=== PATIENT | female | born 1975 | race Hispanic/Latino ===

== ENCOUNTER 2024-05-07 19:05 | Emergency (ER) | payer SELFPAY ==
--- OUTSIDE RECORDS SUMMARY | 2024-05-07 19:08 | XMS REPORT | Continuity of Care Document ---
Author Name Unknown Address [address] [facility] [place] [address] 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 Name Role Phone PIÑA DEBBIEMARKO AKBAR Primary Care Physician Unav ailable [facility]_WalkInSchedul Attending Clinician Unavail able Beatriz Mcgarry MD Attending Clinician [phone] BEATRIZ MCGARRY Attending Clinician Unavailable NEIL SIMENTAL Attending Clinician Unavailable Horace Montalvo MD Attending Clinician [phone] Neil Antoine Attending Clinician [phone] Doctor Unassigned, [place] Attending Clinician U navailable [facility]_WalkInSchedul Admitting Clinician Unavail able NEIL SIMENTAL Admitting Clinician Unavailable Payers Payer Name Policy Type Policy Number Effective Date Expirati on Date Source Problems Condition Name Condition Details Condition Category Status Onset Date Resolution Date Last Treatment Date Treating Clinician Comments Source Gastroesop hageal reflux disease without esophagiti s Gastroesop hageal Reflux Disease without Esophagiti s Problem Active 08-02 00:00: 00 [facility] Gastritis Gastritis Problem Active 08-02 00:00: 00 [facility] Hiatal hernia Hiatal Hernia Problem Active 08-02 00:00: 00 [facility] Impaired fasting glycemia Impaired Fasting Glycemia Problem Active 08-02 00:00: 00 [facility] History of gallstones History of Gallstones Problem Active 08-02 00:00: 00 [facility] Encounter for screening mammogram for breast cancer Encounter for screening mammogram for breast cancer Disease Active 2015-07 00:00: 00 [facility] Single episode of elevated blood pressure Single episode of elevated blood pressure Disease Active 2015-07 00:00: 00 [facility] General counseling and advice for contracept fei management General counseling and advice for contracept fei management Disease Active 2013-07 00:00: 00 Overview: Formattin g of this note might be different from the original. ICD10 Diagnosis Term Cardiac Cath Rn Utility [facility] Irregular menstrual cycle Irregular menstrual cycle Disease Active 2013-07 00:00: 00 [facility] Allergies, Adverse Reactions, Alerts Allergy Name Allergy Type Status Severity Reaction(s) Onset Date Inactive Date Treating Clinician Comments Source NO KNOWN ALLERGIE S Drug Class Active [facility] Social History Social Habit Start Date Stop Date Quantity Comments Source Alcohol intake 2022-08-26 00:00:00 2022-08-26 00:00:00 0 /d [facility] Exposure to SARS-CoV-2 (event) 2022-08-04 00:00:00 2022-08-14 23:07:00 Not sure [facility] Tobacco use and exposure 2012-12-02 00:00:00 2012-12-02 00:00:00 Smokeless tobacco non-user [facility] Sex Ass[birth year] At 1975 00:00:00 1975 00:00:00 [facility] Smoking Status Start Date Stop Date Source Never smoked tobacco [facility] Medications Ordered Medication Name Filled Medication Name Start Date Stop Date Current Medication? Ordering Clinician Indication Dosage Frequency Signature (SIG) Comments Components Source sucralfate 100 mg/mL suspension 08-27 00:00: 00 08-27 00:00 :00 No [id number] 1000mg Take 10 mL by mouth before meals and at bedtime. [facility] esomeprazol e magnesium (NEXIUM ORAL) 08-26 15:53: 19 Yes Take by mouth. [facility] sucralfate 100 mg/mL suspension 08-26 00:00: 00 08-27 00:00 :00 No [id number] 1000mg Take 10 mL by mouth before meals and at bedtime for 30 days. [facility] iopamidol (ISOVUE 370-500 mL) injection 75 mL 08-15 06:45: 00 08-15 06:45 :00 No [id number] 75mL 75 mL, Intravenou s, ONCE, 1 dose, On Mary 08/15/22 at 0045, Routine [facility] ondansetron (ZOFRAN (PF)) injection 4 mg 08-15 05:30: 00 08-15 05:21 :00 No 4mg 4 mg, Slow IV Push, ONCE, 1 dose, On Fri08/14/22 at 2330, MARNI [facility] morpHINE (4 mg/mL) injection 4 mg 08-15 05:30: 00 08-15 05:22 :00 No 4mg 4 mg, Slow IV Push, ONCE, 1 dose, On Fri08/14/22 at 2330, STAT [facility] dicyclomine 20 mg tablet 08-15 00:00: 00 Yes [id number] 20mg Take 1 tablet by mouth 4 (four) times daily as needed for Abdominal pain. [facility] ondansetron 4 mg disintegrat ing tablet 08-15 00:00: 00 Yes [id number] 4mg Take 1 tablet by mouth every 8 (eight) hours as needed for Nausea and Vomiting (N/V). [facility] esomeprazol e magnesium (NEXIUM ORAL) 2018-07 20:15: 46 Yes Take by mouth. [facility] pantoprazol e 40 mg tablet,andrea yed release Take 1 tablet every day by oral route. pantoprazol e 40 mg tablet,andrea yed release Take 1 tablet every day by oral route. No 1 Q1D pantoprazo le 40 mg tablet,del ayed release Take 1 tablet every day by oral route. [facility] Tylenol Tylenol No Tylenol [facility] Vital Signs Vital Name Observation Time Observation Value Comments S ource Systolic blood pressure 2022-08-26 20:10:00 133 mm[Hg] [facility] Diastolic blood pressure 2022-08-26 20:10:00 84 mm[Hg] [facility] Heart rate 2022-08-26 20:10:00 107 /min [facility] Body temperature 2022-08-26 20:10:00 36.56 Amarilis [facility] Respiratory rate 2022-08-26 20:10:00 18 /min [facility] Body height 2022-08-26 20:10:00 157.5 cm [facility] Body weight 2022-08-26 20:10:00 60.601 kg [facility] BMI 2022-08-26 20:10:00 24.44 kg/m2 [facility] Systolic blood pressure 2022-08-15 08:00:00 124 mm[Hg] [facility] Diastolic blood pressure 2022-08-15 08:00:00 90 mm[Hg] [facility] Heart rate 2022-08-15 08:00:00 66 /min [facility] Respiratory rate 2022-08-15 08:00:00 20 /min [facility] Oxygen saturation in Arterial blood by Pulse oximetry 2022-08-15 08:00:00 99 /min [facility] Body temperature 2022-08-15 05:11:00 35.61 Amarilis [facility] Body height 2022-08-15 05:11:00 160 cm [facility] Body weight 2022-08-15 05:11:00 62.052 kg [facility] BMI 2022-08-15 05:11:00 24.23 kg/m2 [facility] BP Diastolic 2022-08-02 00:00:00 89 mm[Hg] [facility] Height 2022-08-02 00:00:00 63 [in_i] [facility] BMI (Body Mass Index) 2022-08-02 00:00:00 23.6 kg/m2 [facility] BP Systolic 2022-08-02 00:00:00 131 mm[Hg] [facility] Body Weight 2022-08-02 00:00:00 2128 [oz_av] [facility] Procedures Procedure Date / Time Performed Performing Clinicia n Source POCT TEST 2022-08-15 05:23:00 Horace Montalvo [facility] URINALYSIS 2022-08-15 05:19:00 Horace Montalvo [facility] LIPASE 2022-08-15 05:19:00 Horace Montalvo [facility] COMP. METABOLIC PANEL (14355) 2022-08-15 05:19:00 Horace Montalvo [facility] CBC WITH DIFF 2022-08-15 05:19:00 Horace Montalvo [facility] NOTICE OF PRIVACY PRACTICES 2022-08-15 05:03:10 Doctor Unassigned, [place] [facility] CONSENT/REFUSAL FOR DIAGNOSIS AND TREATMENT 2022-08-15 05:02:20 Doctor Unassigned, [place] [facility] Csf Shunt Reprogram [facility] edical Plan of Care Planned Activity Planned Date Details Comments Source Diagnostic Test Pending 2022-08-02 00:00:00 CBC w/ auto diff [code = CBC w/ auto diff] [facility] Diagnostic Test Pending 2022-08-02 00:00:00 CMP, serum or plasma [code = CMP, serum or plasma] [facility] Diagnostic Test Pending 2022-08-02 00:00:00 HbA1 c (hemoglobin A1c), blood [code = HbA1c (hemoglobin A1c), blood] [facility] Medical Encounters Start Date/Time End Date/Time Encounter Type Admission Type Attending [facility] Care Facility Care Department Encounter ID Source 2023-08-12 00:00:00 2023-08-12 00:00:00 Outpatient [facility]Walk InSchedul [facility] [id number] [facility] 2022-08-29 00:00:00 2022-08-29 00:00:00 Beatriz Tobias [facility] [id number] [id number] [facility] 2022-08-26 14:30:00 2022-08-26 16:19:29 Outpatient R BEATRIZ MCGARRY [facility] [id number] [facility] 2022-08-26 14:30:00 2022-08-26 16:19:29 [facility] 1..840.114 350.1.13.10 [id number] [id number] [facility] 2022-08-14 23:06:00 2022-08-15 02:07:00 Emergency X NEIL SIMENTAL [facility] ERT [id number] [facility] 2022-08-14 23:06:00 2022-08-15 02:07:00 Emergency Horace Montalvo S Neil Simental S [facility] 1..840.114 [id number] [id number] [id number] [facility] 2022-08-14 00:00:00 2022-08-14 00:00:00 Orders Only Doctor Unassigned, [place] [facility] 1..840.114 [id number] [id number] [id number] [facility] 2022-08-02 00:00:00 2022-08-02 00:00:00 [id number] [facility] 2022-08-02 00:00:00 2022-08-02 00:00:00 NICOLE Fisher: [address] [address] , Ph. [facility] - GC_CPC_Need [facility] Office [id number] [facility] Results Test Description Test Time Test Comments Results Result Co mments Source [facility] Met[facility] [id number] 06:25:06* Test Item Value Reference Range Interpretation Comme nts NA (test code = 5274805511) 139 mmol/L 135-145 K (test code = 3588263931) 4.0 mmol/L 3.5-5.0 CL (test code = 2673666904) 102 mmol/L 98-108 CO2 TOTAL (test code = 0607746991) 30 mmol/L 23-31 AGAP (test code = 5417292190) 7 2-16 BUN (test code = 4014688998) 21 mg/dL 7-23 GLUCOSE (test code = 7862556117) 130 mg/dL 70-110 H CREATININE (test code = 0129791174) 0.86 mg/dL 0.50-1.04 TOTAL BILI (test code = 5988262179) 0.4 mg/dL 0.1-1.1 CALCIUM (test code = 3583608577) 9.2 mg/dL 8.6-10.6 T PROTEIN (test code = 4019781263) 7.6 g/dL 6.3-8.2 ALBUMIN (test code = 6798883804) 4.5 g/dL 3.5-5.0 ALK PHOS (test code = 4225866735) 86 U/L 34-122 ALTv (test code = 1742-6) 105 U/L 5-35 H AST(SGOT) (test code = 3669694470) 147 U/L 13-40 H eGFR (test code = 4377882100) 71.0 mL/min/1.73m2 JOAN (test code = JOAN) Association of Glomerular Filtration Rate (GFR) and Staging of Kidney Disease* + --+ --+ ------+| GFR (mL/min/1.73 m2) ?| With Kidney Damage ?| ?Without Kidney Damage+ --------+ --------+ +| ?>90 ?| ?Stage one ?| ? Normal ?+ ---+ ---+ -------+| ?60-89 ?| ?Stage two ?| ? Decreased GFR ? + --+ --+ ------+| ?30-59 ?| ?Stage three ?| ? Stage three ? + --+ --+ ------+| ?15-29 ?| ?Stage four ? | ? Stage four ?+ ---+ ---+ -------+| ?<15 (or dialysis) ? ?| ?Stage five ? | ? Stage five ?+ ---+ ---+ -------+ *Each stage assumes the associated GFR level has been in effect for at least three months. ?Stages 1 to 5, with or without kidney disease, indicate chronic kidney disease. Notes: Determination of stages one and two (with eGFR >59mL/min/1.73 m2) requires estimation of kidney damage for at least three months as defined by structural or functional abnormalities of the kidney, manifested by either:Pathological abnormalities or Markers of kidney damage (including abnormalities in the composition of the blood or urine or abnormalities in imaging tests). Lab Interpretation (test code = 82819-5) Abnormal [facility], [id number] 06:24:26* Test Item Value Reference Range Interpretation Comme [facility] LIPASE (test code = 7665574855) 220 U/L 0-220 Lab Interpretation (test cod e = 55258-7) Normal [facility] [id number] 05:23:00* Test Item Value Reference Range Interpretation Comme nts POCT PREG (test code = 1605) Negative On board controls acceptable with C Line (test code = 3574) Positive POCT PREG LOT # (test code = 3575) [id number] POCT PREG TEST DATE ( test code = 3576) 10/12/2023 Lab Interpretation (test cod e = 05887-2) Normal [facility]"
[2024-05-07 19:42] LABS: Absolute Basophils 0.1 K/uL (0-0.5); Absolute Eosinophils 0.2 K/uL (0-0.5); Absolute Lymphocytes (CBC) 1.2 K/uL (0.7-4.9); Absolute Monocytes 0.5 K/uL (0.1-1.3); Absolute Neutrophil 5.3 K/uL (1.8-8.0); Basophils % 1.4 % (0-1.3); Eosinophils % 2.1 % (0-4.4); Hematocrit 39.2 % (36.0-45.0); Hemoglobin 13.3 g/dL (12.0-15.0); MCH 30.6 pg (27.0-35.0); MCHC 33.9 g/dL (32.0-36.0); MCV 90.1 fL (80-100); MPV 8.6 fL (7.6-11.3); Monocytes % 6.4 % (3.3-12.3); Neutrophils % 73.1 % (41.7-73.7); Nucleated Red Blood Cells % 0.1 % (0-0); Platelets 242 thou/uL (152-406); RBC Red Blood Cell Count 4.35 M/uL (3.86-4.86); Red Cell Distribution Width 13.6 % (12.1-15.2)
[2024-05-07] MEDS ORDERED: MORPHINE 4 MG/ML SYR ONE (19:43)
[2024-05-07] MEDS ORDERED: NA CHLORIDE 0.9% 1,000 ML ONE (19:43)
[2024-05-07] MEDS ORDERED: ONDANSETRON 4 MG/2 ML VIAL ONE (19:43)
[2024-05-07] MEDS ORDERED: FAMOTIDINE 20 MG/2 ML VIAL IV ONE (19:43)
[2024-05-07 19:57] LABS: Albumin 3.6 g/dL (3.4-5.0); Albumin/Globulin Ratio 0.9 (1.1-1.8); Anion Gap 9.9 mEq/L (5.0-15.0); Bilirubin Total 0.2 mg/dL (0.2-1.0); Globulin 3.8 g/dL (2.3-3.5); Potassium 3.9 mEq/L (3.5-5.1); Protein, Total 7.4 g/dL (6.4-8.2)
[2024-05-07 20:07] LABS: Specific Gravity > 1.030 (1.005-1.030)
[2024-05-07 20:08] LABS: Specific Gravity > 1.030 (1.005-1.030); Sqamous Epithelial <5 /HPF (None Seen); Urine Bacteria None Seen /HPF (<20); Urine Bilirubin NEGATIVE (Negative); Urine Blood Negative (Negative); Urine Clarity Clear (Clear); Urine Color Light-Yellow (Yellow); Urine Culture Reflex Order NOT NEEDED; Urine Glucose NEGATIVE (Negative); Urine Ketones NEGATIVE (Negative); Urine Microscopic Reflex YN ORDER UMIC; Urine Mucus Slight /HPF (None Seen); Urine Nitrite NEGATIVE (Negative); Urine Protein TRACE (Negative); Urine RBC <5 /HPF (None Seen); Urine Urobilinogen Normal (Normal); Urine WBC <5 /HPF (<5); Urine Yeast (Budding) Trace /HPF (None Seen)
--- NOTE | 2024-05-07 20:30 | RAD REPORT ---
EXAM: Right upper quadrant ultrasound. CLINICAL HISTORY: Abdominal pain COMPARISON: None FINDINGS: Multiple gallstones. Small to moderate amount of gallbladder sludge. Gallbladder wall appears mildly thickened. Biliary tree normal caliber IMPRESSION: Cholelithiasis with gallbladder sludge Mild gallbladder wall thickening may indicate cholecystitis
--- NOTE | 2024-05-07 21:23 | EDPHYS ---
Physician Documentation [facility] Name: Rickie Arriaga Age: 49 yrs Sex: Female : 1975 Arrival Date: 05/07/2024 Time: 19:05 Bed 15 Private MD: ED Physician Rehan Andrews HPI: 05/07 19:30 This 49 yrs old Female presents to ER via Ambulatory with complaints of cp Abdominal Pain. 19:30 The patient presents with abdominal pain in the epigastric area, in the upper abdomen. cp Onset: The symptoms/episode began/occurred today. The symptoms radiate to Associated signs and symptoms: Pertinent positives: nausea, Pertinent negatives: constipation, diarrhea, fever. The symptoms are described as constant, crampy. Severity of pain: in the emergency department the pain is unchanged despite home interventions. REHABILITATION PHYSICIAN: 05/08 00:08 unknown bm8 Historical: - Allergies: 05/07 19:23 No Known Allergies; tm6 - PMHx: 19:23 shunt; tm6 - PSHx: 19:23 None; tm6 - Immunization history:: Client reports receiving the 2nd dose of the Covid vaccine. - Infectious Disease History:: Denies. - Social history:: Smoking status: Patient denies any tobacco usage or history of. Patient/guardian denies using alcohol. ROS: 19:35 Constitutional: Negative for body aches, chills, fever, poor PO intake, cp 19:35 Eyes: Negative for injury, pain, redness, and discharge, cp 19:35 ENT: Negative for drainage from ear(s), ear pain, sore throat, difficulty swallowing, difficulty handling secretions, 19:35 Cardiovascular: Negative for chest pain, edema, palpitations, 19:35 Respiratory: Negative for cough, shortness of breath, wheezing, 19:35 Abdomen/GI: Positive for abdominal pain, nausea, Negative for diarrhea, constipation, active vomiting, 19:35 Back: Positive for radiated pain, 19:35 Neuro: Negative for altered mental status, dizziness, headache, numbness, weakness, 19:35 All other systems are negative, Exam: 19:40 Constitutional: The patient appears in no acute distress, alert, awake, non-toxic, well cp developed, well nourished, in obvious pain, uncomfortable, 19:40 Head/Face: Normocephalic, atraumatic. cp 19:40 Eyes: Periorbital structures: appear normal, Conjunctiva: normal, no exudate, no injection, Sclera: no appreciated abnormality, Lids and lashes: appear normal, bilaterally, 19:40 ENT: External ear(s): are unremarkable, Nose: is normal, Mouth: Lips: moist, Oral mucosa: pink and intact, moist, Posterior pharynx: Airway: no evidence of obstruction, patent, 19:40 Chest/axilla: Inspection: normal, 19:40 Cardiovascular: Rate: normal, Rhythm: regular, 19:40 Respiratory: the patient does not display signs of respiratory distress, Respirations: normal, no use of accessory muscles, no retractions, labored breathing, is not present, Breath sounds: are clear throughout, no decreased breath sounds, no stridor, no wheezing, 19:40 Abdomen/GI: Inspection: abdomen appears normal, Bowel sounds: active, all quadrants, Palpation: soft, in all quadrants, severe abdominal tenderness, in the epigastric area, rebound tenderness, is not appreciated, voluntary guarding, is elicited in the epigastric area and right upper quadrant, 19:40 Back: CVA tenderness, is absent, 19:40 Neuro: Orientation: to person, place \T\ time. Mentation: is normal, Motor: moves all fours, strength is normal, Vital Signs: 19:22 BP 152 / 98; Pulse 66; Resp 17; Temp 97.5(O); Pulse Ox 100% on R/A; MAP 112 mmHg; tm6 Weight 63.5 kg; Height 5 ft. 2 in. ; Pain 6/10; 20:24 BP 144 / 93; Pulse 55; Resp 17; Temp 97.5; Pulse Ox 100% on R/A; Pain 3/10; bm8 22:20 BP 147 / 90; Pulse 68; Resp 18; Temp 97.5; Pulse Ox 96% ; Pain 0/10; bm8 23:23 BP 139 / 92; Pulse 68; Resp 17; Temp 98.2; Pulse Ox 99% ; Pain 0/10; bm8 05/08 00:08 BP 138 / 98; Pulse 65; Resp 17; Temp 98.2; Pulse Ox 99% ; Pain 0/10; bm8 05/07 19:22 Body Mass Index 25.61 (63.50 kg, 157.48 cm) tm6 05/07 19:22 Pain Scale: Adult tm6 20:24 Pain Scale: Adult bm8 22:20 Pain Scale: Adult bm8 23:23 Pain Scale: Adult bm8 05/08 00:08 Pain Scale: Adult bm8 Matt Coma Score: 05/07 19:38 Eye Response: spontaneous(4). Motor Response: obeys commands(6). Verbal Response: bm8 oriented(5). Total: 15. 22:20 Eye Response: spontaneous(4). Motor Response: obeys commands(6). Verbal Response: bm8 oriented(5). Total: 15. 23:23 Eye Response: spontaneous(4). Motor Response: obeys commands(6). Verbal Response: bm8 oriented(5). Total: 15. 05/08 00:08 Eye Response: spontaneous(4). Motor Response: obeys commands(6). Verbal Response: bm8 oriented(5). Total: 15. MDM: 05/07 19:15 Medical Screening Exam initiated cp 20:35 Data reviewed: vital signs, nurses notes, lab test result(s), radiologic studies, cp ultrasound. 20:35 Management of patient was discussed with the following: Senior Bi Developer: DR Cantu \T\2019 who cp requests transfer to higher level of care due to patient's PMHX significant for [employer] shunt placement and need for intraoperative ICP monitoring. 05/07 19:25 Order name: CBC with Diff; Complete Time: 20:16 cp 05/07 20:16 Interpretation: Reviewed. cp 05/07 19:25 Order name: CMP; Complete Time: 20:16 cp 05/07 20:16 Interpretation: Normal except: CL 108; GLUC 126; BUN 24; GFR 68; ALT 70; GLOB 3.8; A/G cp 0.9. 05/07 19:25 Order name: Lipase; Complete Time: 20:16 cp 05/07 19:25 Order name: Test, Urine; Complete Time: 20:16 cp 05/07 19:25 Order name: Urinalysis w/ reflexes; Complete Time: 20:16 cp 05/07 19:25 Order name: Abdomen Limited US; Complete Time: 20:31 cp 05/07 19:25 Order name: IV Saline Lock; Complete Time: 19:35 cp 05/07 19:25 Order name: Labs collected and sent; Complete Time: 19:35 cp 05/07 19: Order name: NPO; Complete Time: 19:52 cp Administered Medications: 19:51 Drug: Famotidine IVP 20 mg IVP once; dilute with 10 mL 0.9% NaCl; give over 2 minutes bm8 Route: IVP; Site: right antecubital; 20:28 Follow up: Response: No adverse reaction bm8 19:51 Drug: NS 0.9% IV 1000 ml IV at 1 bolus Per protocol; to be given as a bolus over 60 bm8 minutes Route: IV; Rate: 1 bolus; Site: right antecubital; 20:28 Follow up: Response: No adverse reaction; IV Status: Completed infusion; IV Intake: bm8 1000ml 19:52 Drug: Ondansetron IVP 4 mg IVP once; over 2 minutes Route: IVP; Site: right antecubital;bm8 20:28 Follow up: Response: No adverse reaction bm8 19:52 Drug: morphine IVP or IV 4 mg IVP once over 4 mins Route: IVP; Infused Over: 4 mins; bm8 Site: right antecubital; 20:28 Follow up: Response: No adverse reaction bm8 21:41 Drug: Rocephin IV 1 grams IV at calculated rate once; Given slow IV push per pharmacy bm8 instructions Route: IV; Rate: calculated rate; Site: right antecubital; 22:21 Follow up: Response: No adverse reaction; IV Status: Completed infusion; IV Intake: 02ofis3 Disposition Summary: 05/07/24 21:22 Transfer Ordered Notes: Transfer Location: [facility] cp Reason: Higher level of care cp Condition: Stable cp Problem: new cp Symptoms: have improved cp Accepting Physician: Doctor(05/08/24 00:10) bm8 Diagnosis - Other cholelithiasis without obstruction cp Forms: - Medication Reconciliation Form cp - SBAR form cp Signatures: Dispatcher [employer] EDMS Rehan Shields PA PA cp Masterson, Tawney RN RN tm6 Chris Nelson RN RN bm8 Corrections: (The following items were deleted from the chart) 05/08 00:10 05/07 21:22 Doctor cp bm8
--- NOTE | 2024-05-07 21:23 | ER ---
Nurse's Notes [facility] Name: Rickie Arriaga Age: 49 yrs Sex: Female : 1975 Arrival Date: 05/07/2024 Time: 19:05 Bed 15 Private MD: Diagnosis: Other cholelithiasis without obstruction Presentation: 05/07 19:22 Chief complaint: Patient states: epigastric pain and middle back pain, nausea, starting tm6 today. Coronavirus screen: Vaccine status: Patient reports receiving the 2nd dose of the covid vaccine. Client denies travel out of the [place] in the last 14 days. Ebola Screen: Patient negative for fever greater than or equal to 101.5 degrees Fahrenheit, and additional compatible Ebola Virus Disease symptoms Patient denies exposure to infectious person. Patient denies travel to an Ebola-affected area in the 21 days before illness onset. No symptoms or risks identified at this time. Initial Sepsis Screen: Does the patient meet any 2 criteria? No. Patient's initial sepsis screen is negative. Does the patient have a suspected source of infection? No. Patient's initial sepsis screen is negative. Risk Assessment: Do you want to hurt yourself or someone else? Patient reports no desire to harm self or others. Onset of symptoms was May 07, 2024. 19:22 Method Of Arrival: Ambulatory tm6 19:22 Acuity: JASIEL 3 tm6 Triage Assessment: 19:23 General: Appears in no apparent distress. Behavior is calm, cooperative. Pain: tm6 Complains of pain in mid back area, left mid back, right mid back and epigastric area Pain currently is 6 out of 10 on a pain scale. at worst was 9 out of 10 on a pain scale. EENT: No signs and/or symptoms were reported regarding the EENT system. Neuro: Level of Consciousness is awake, alert, obeys commands, Oriented to person, place, time, situation. Cardiovascular: Patient's skin is warm and dry. Respiratory: Airway is patent Respiratory effort is even, unlabored, Respiratory pattern is regular, symmetrical. GI: Abdomen is flat, non-distended, Reports epigastric pain, nausea. : No signs and/or symptoms were reported regarding the genitourinary system. Derm: No signs and/or symptoms reported regarding the dermatologic system. Musculoskeletal: No signs and/or symptoms reported regarding the musculoskeletal system. 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 - Infectious Disease History:: Denies. - Social history:: Smoking status: Patient denies any tobacco usage or history of. Patient/guardian denies using alcohol. Screenin:38 [facility] ED Fall Risk Assessment (Adult) History of falling in the last 3 months, bm8 including since admission No falls in past 3 months (0 pts) Confusion or Disorientation No (0 pts) Intoxicated or Sedated No (0 pts) Impaired Gait No (0 pts) Mobility Assist Device Used No (0 pt) Altered Elimination No (0 pt) Score/Fall Risk Level 0 - 2 = Low Risk Oriented to surroundings, Maintained a safe environment, Educated pt \T\ family on fall prevention, incl call for assistance when getting out of bed, Assessed \T\ reinforced patient's understanding of fall precautions, Hourly rounding (assess needs \T\ fall precautionary measures) done, Used ambulatory aids as needed (educated on \T\ assisted with), Used gait belt as appropriate. Abuse screen: Denies threats or abuse. Nutritional screening: No deficits noted. Tuberculosis screening: No symptoms or risk factors identified. Assessment: 19:38 General: Appears in no apparent distress. comfortable, Behavior is calm, cooperative, bm8 appropriate for age. Pain: Complains of pain in diaphragm Pain radiates to back Pain currently is 3 out of 10 on a pain scale. Quality of pain is described as burning. Neuro: No deficits noted. Level of Consciousness is awake, alert, obeys commands, Oriented to person, place, time, situation, Appropriate for age. Cardiovascular: Denies chest pain, Heart tones S1 S2 present Capillary refill < 3 seconds in bilateral fingers Patient's skin is warm and dry. Rhythm is sinus rhythm. Respiratory: Airway is patent Trachea midline Respiratory effort is even, unlabored, Respiratory pattern is regular, symmetrical, Breath sounds are clear bilaterally. GI: Abdomen is flat, non-distended, Bowel sounds present X 4 quads. Abdomen is tender to palpation in epigastric area and right upper quadrant Reports upper abdominal pain, Pain is 3 out of 10 on a pain scale. : No signs and/or symptoms were reported regarding the genitourinary system. EENT: No signs and/or symptoms were reported regarding the EENT system. Derm: No signs and/or symptoms reported regarding the dermatologic system. Musculoskeletal: No signs and/or symptoms reported regarding the musculoskeletal system. 20:24 Reassessment: Patient appears in no apparent distress at this time. Patient and/or bm8 family updated on plan of care and expected duration. Pain level reassessed. Patient is alert, oriented x 3, equal unlabored respirations, skin warm/dry/pink. Patient states feeling better. Patient states symptoms have improved. Pain: Complains of pain in epigastric area Pain currently is 3 out of 10 on a pain scale. GI: Abdomen is flat, non-distended, Reports upper abdominal pain, Pain is 3 out of 10 on a pain scale. pt states that pain comes in waves but right now she is feeling good. 22:20 Reassessment: Patient appears in no apparent distress at this time. Patient and/or bm8 family updated on plan of care and expected duration. Pain level reassessed. Patient is alert, oriented x 3, equal unlabored respirations, skin warm/dry/pink. Patient denies pain at this time. Patient states feeling better. Patient states symptoms have improved. 23:22 Reassessment: report given to maryanne puga at [facility]. bm8 Vital Signs: 19:22 BP 152 / 98; Pulse 66; Resp 17; Temp 97.5(O); Pulse Ox 100% on R/A; MAP 112 mmHg; tm6 Weight 63.5 kg; Height 5 ft. 2 in. ; Pain 6/10; 20:24 BP 144 / 93; Pulse 55; Resp 17; Temp 97.5; Pulse Ox 100% on R/A; Pain 3/10; bm8 22:20 BP 147 / 90; Pulse 68; Resp 18; Temp 97.5; Pulse Ox 96% ; Pain 0/10; bm8 23:23 BP 139 / 92; Pulse 68; Resp 17; Temp 98.2; Pulse Ox 99% ; Pain 0/10; bm8 05/08 00:08 BP 138 / 98; Pulse 65; Resp 17; Temp 98.2; Pulse Ox 99% ; Pain 0/10; bm8 05/07 19:22 Body Mass Index 25.61 (63.50 kg, 157.48 cm) tm6 05/07 19:22 Pain Scale: Adult tm6 20:24 Pain Scale: Adult bm8 22:20 Pain Scale: Adult bm8 23:23 Pain Scale: Adult bm8 05/08 00:08 Pain Scale: Adult bm8 [place] Coma Score: 05/07 19:38 Eye Response: spontaneous(4). Motor Response: obeys commands(6). Verbal Response: bm8 oriented(5). Total: 15. 22:20 Eye Response: spontaneous(4). Motor Response: obeys commands(6). Verbal Response: bm8 oriented(5). Total: 15. 23:23 Eye Response: spontaneous(4). Motor Response: obeys commands(6). Verbal Response: bm8 oriented(5). Total: 15. 05/08 00:08 Eye Response: spontaneous(4). Motor Response: obeys commands(6). Verbal Response: bm8 oriented(5). Total: 15. ED Course: 05/07 19:09 Patient arrived in ED. gm2 19:12 Rehan Shields PA is PHCP. cp 19:12 Rehan Andrews MD is Attending Physician. cp 19:23 Triage completed. tm6 19:23 Arm band placed on right wrist. tm6 19:34 Inserted saline lock: 20 gauge in right antecubital area, using aseptic technique. tm6 Blood collected. Flushed with 10 mL NS. 19:35 CBC with Diff Sent. tm6 19:35 CMP Sent. tm6 19:35 Lipase Sent. tm6 19:38 Chris Nelson, RN is Primary Nurse. bm8 19:38 Patient has correct armband on for positive identification. Placed in gown. Bed in low bm8 position. Call light in reach. Side rails up X 1. Adult w/ patient. Client placed on continuous cardiac and pulse oximetry monitoring. NIBP monitoring applied. coal or ore controller on. Pulse ox on. NIBP on. Door closed. Noise minimized. Pillow given. Verbal reassurance given. Head of bed elevated. 19:38 No provider procedures requiring assistance completed. Initial lab(s) drawn, by ED bm8 staff, sent to lab. Patient maintains SpO2 saturation greater than 95% on room air. 20:15 Abdomen Limited US In Process Unspecified. EDMS 21:08 initiated transfer with [facility] - was told by Rehan RIVERA that [facility] would not be km[facility] accepting the pt. 22:02 called [facility], spoke with Will. Was told by Rehan RIVERA that [facility] is declining to [facility] accept pt as well. 22:20 Provided Education on: need for transfer. bm8 22:20 Patient transferred, IV remains in place. bm8 23:13 initiated transfer with Sherie \\ [facility]- [id number]. Pt was accepted to [facility] to the ER. [facility] Number for nurse to nurse report [phone]. Accepted Loren Cantu \\ [id number]. Admin Sherie Ceron \ [id number]. Administered Medications: 19:51 Drug: Famotidine IVP 20 mg IVP once; dilute with 10 mL 0.9% NaCl; give over 2 minutes bm8 Route: IVP; Site: right antecubital; 20:28 Follow up: Response: No adverse reaction bm8 19:51 Drug: NS 0.9% IV 1000 ml IV at 1 bolus Per protocol; to be given as a bolus over 60 bm8 minutes Route: IV; Rate: 1 bolus; Site: right antecubital; 20:28 Follow up: Response: No adverse reaction; IV Status: Completed infusion; IV Intake: bm8 1000ml 19:52 Drug: Ondansetron IVP 4 mg IVP once; over 2 minutes Route: IVP; Site: right antecubital;bm8 20:28 Follow up: Response: No adverse reaction bm8 19:52 Drug: morphine IVP or IV 4 mg IVP once over 4 mins Route: IVP; Infused Over: 4 mins; bm8 Site: right antecubital; 20:28 Follow up: Response: No adverse reaction bm8 21:41 Drug: Rocephin IV 1 grams IV at calculated rate once; Given slow IV push per pharmacy bm8 instructions Route: IV; Rate: calculated rate; Site: right antecubital; 22:21 Follow up: Response: No adverse reaction; IV Status: Completed infusion; IV Intake: [id number] Medication: 19:38 VIS not applicable for this client. bm8 Intake: 20:28 IV: 1000ml; Total: 1000ml. bm8 22:21 IV: 10ml; Total: 1010ml. bm8 Outcome: 21:22 ER care complete, transfer ordered by MD. albarran 05/08 00:07 Transferred by ground EMS Transfer form completed. X-rays sent w/ patient. Note: [facility] bm8 [facility] Condition: stable Instructed on the need for transfer, Demonstrated understanding of instructions, follow-up care, medications, 00:10 Patient left the ED. bm8 Signatures: Dispatcher [employer] EDMS Rehan Shields PA PA cp Mitchell, Ginger 2 Sofia Addison [facility] John Castano RN RN tm6 Chris Nelson RN RN bm8
[2024-05-07] MEDS ORDERED: CEFTRIAXONE 1000 MG/VIAL ONE (21:34)
[2024-05-08 13:16] VITALS: TEMP 98.2; O2SAT 99
[2024-05-08 13:17] VITALS: BP 138/98
--- NOTE | 2024-05-12 15:00 | EKG ---
Test Date: 2024-05-07 Test Time: 19:36:17 Regional Engagement Consultant: ETHAN MEASUREMENT RESULTS: Intervals: Rate: 60 MT: 140 QRSD: 88 QT: 410 QTc: 410 [place]: P: 62 MT: 140 QRS: 89 T: 73 INTERPRETIVE STATEMENTS: Normal sinus rhythm Normal ECG No previous ECG available for comparison Electronically Signed On 05-12-24 14:49:19 CDT by [place]
== END 2024-05-08 00:10 | disposition short-term general hospital (02) ==
LOC: ER 19:05
DX: K80.80 Other cholelithiasis without obstruction (principal)
CPT/HCPCS: 36415; 76705; 80053; 81001; 81025; 83690; 85025; 93005; 96361; 96365; 96375; 99285; J0696; J2405; J7030